=== PATIENT | male | born 1985 | race Hispanic/Latino ===

== ENCOUNTER 2023-08-10 13:14 | Emergency (ER) | payer OTHER ==
[~2023-08-10] VITALS: Ht 167.6 cm; Wt 80.0 kg
[2023-08-10] MEDS ORDERED: DIFLUCAN150 MG PO (14:31)
[2023-08-10] MEDS ORDERED: KURIC21 EX (14:32)
[2023-08-10 14:58] VITALS: BP 186/105
== END 2023-08-10 14:58 | disposition home or self-care (01) | DRG 607 ==
LOC: ED 13:14
DX: B35.6 Tinea cruris (principal)